=== PATIENT | female | born 1975 | race Caucasian/White ===

== ENCOUNTER 2018-04-28 12:53 | Emergency (ER) | payer BC ==
[~2018-04-28] VITALS: Ht 167.6 cm; Wt 61.0 kg
[~2018-04-28 12:53] MED LIST: FLEXERIL10 MG PO; LORTAB5 PO; NO MEDS; TORADOL PO
[2018-04-28] MEDS ORDERED: LEVOTHYROXIN50 MCG PO (13:03)
[2018-04-28] MEDS ORDERED: ESTRACE1 MG PO (13:04)
[2018-04-28 13:58] VITALS: BP 148/86
== END 2018-04-28 14:24 | disposition home or self-care (01) | DRG 556 ==
LOC: ED 12:53
DX: M25.532 Pain in left wrist (principal); M79.645 Pain in left finger(s); F17.210 Nicotine dependence, cigarettes, uncomplicated

== ENCOUNTER 2018-11-27 08:25 | Emergency (ER) | payer BC ==
[~2018-11-27] VITALS: Ht 167.6 cm; Wt 75.0 kg
[~2018-11-27 08:25] MED LIST changes: +ESTRACE1 MG PO; +LEVOTHYROXIN50 MCG PO
[2018-11-27] MEDS ORDERED: DICLOFENAC SODI75 MG PO (09:09)
[2018-11-27] MEDS ORDERED: EFFEXOR XR75 MG PO (09:09)
[2018-11-27] MEDS ORDERED: VITAMIN D PO (09:10)
[2018-11-27 09:14] LABS: HEMOGLOBIN 14.4 g/dl (12.0-16.0); IMMATURE GRANULOCYTES 0.6 % (0.0-5.0); MEAN CELL VOLUME 88.5 fL CALC (80.0-100.0); MEAN CORPUSCULAR HGB CONC 32.7 g/L CALC (32.0-36.0); NEUT# 5.92 thou/uL (2.00-7.15); RED BLOOD COUNT 4.97 mill/uL (4.20-5.60); RED CELL DISTRI WIDTH 13.6 % (11.5-15.5)
[2018-11-27 09:16] LABS: ANION GAP 18 (6-22 (CALC)); BUN 10 mg/dL (7-17); BUN/CREATININE RATIO 15 (12-20 (CALC)); CARBON DIOXIDE 21 mmol/l (22-30); CHLORIDE 105 mmol/l (95-108); CREATININE 0.7 mg/dL (0.5-1.0); GFR > 60 ML/MIN (>=60 (CALC)); GFR FOR AFR.AMER. > 60 ML/MIN (>=60 (CALC)); POTASSIUM 4.7 mmol/l (3.5-5.1); SODIUM 139 mmol/l (137-146)
[2018-11-27 09:25] VITALS: BP 160/93
== END 2018-11-27 09:25 | disposition short-term general hospital (02) | DRG 311 ==
LOC: ED 08:25
PROVIDERS: Family Medicine
DX: I20.0 Unstable angina (principal); F17.200 Nicotine dependence, unspecified, uncomplicated

== ENCOUNTER 2019-01-14 12:58 | Observation (INO) | payer BC ==
[~2019-01-14] VITALS: Ht 167.6 cm; Wt 75.0 kg
[~2019-01-14 12:58] MED LIST changes: +DICLOFENAC SODI75 MG PO; +EFFEXOR XR75 MG PO; +VITAMIN D PO
[2019-01-14 13:33] LABS: HEMATOCRIT 39.4 % (37.0-47.0); HEMOGLOBIN 13.1 g/dl (12.0-16.0); IMMATURE GRANULOCYTES 0.6 % (0.0-5.0); MEAN CELL VOLUME 87.2 fL CALC (80.0-100.0); MEAN CORPUSCULAR HGB CONC 33.2 g/L CALC (32.0-36.0); NEUT# 6.2 thou/uL (2.00-7.15); RED BLOOD COUNT 4.52 mill/uL (4.20-5.60); RED CELL DISTRI WIDTH 13.4 % (11.5-15.5)
[2019-01-14 13:45] LABS: ALBUMIN 4.8 g/dL (3.2-5.0); AMYLASE 126 u/l (30-110); BILIRUBIN, TOTAL 0.5 mg/dL (0.0-1.4); BUN 14 mg/dL (7-17); BUN/CREATININE RATIO 17 (12-20 (CALC)); CHLORIDE 100 mmol/l (95-108); CREATININE 0.8 mg/dL (0.5-1.0); GFR > 60 ML/MIN (>=60 (CALC)); GFR FOR AFR.AMER. > 60 ML/MIN (>=60 (CALC)); LIPASE 72 u/l (23-300); POTASSIUM 4.4 mmol/l (3.5-5.1); SGOT/AST 25 u/l (14-36); SODIUM 140 mmol/l (137-146); TOTAL PROTEIN 7.4 g/dL (6.3-8.2)
[2019-01-14 13:47] LABS: ALKALINE PHOSPHATASE 138 u/l (38-126); ANION GAP 18 (6-22 (CALC)); CARBON DIOXIDE 26 mmol/l (22-30)
[2019-01-14 13:53] LABS: MYOGLOBIN 39 ng/mL (0 - 62)
[2019-01-14] MEDS ORDERED: VITAMIN D32000 UNI3 (14:00)
[2019-01-14] MEDS ORDERED: METOPROL TAR25 MG PO (14:00)
[2019-01-14 14:01] LABS: INTERNATIONAL NORMALIZED RATIO 0.9 RATIO (0.7-1.3); PROTHROMBIN TIME 9.9 SECONDS (9.0-12.5)
[2019-01-14] MEDS ORDERED: ATORVASTATIN CA80 MG PO (14:01)
[2019-01-14] MEDS ORDERED: ASPIRIN81 MG PO (14:01)
[2019-01-14] MEDS ORDERED: BRILINTA90 MG PO (14:01)
[2019-01-14] MEDS ORDERED: ALENDRONATE70 MG PO (14:02)
[2019-01-14] MEDS ORDERED: TRAMADOL HCL50 MG PO (14:03)
[2019-01-14] MEDS ORDERED: OMEPRAZOLE10 MG PO (14:03)
[2019-01-14 15:05] LABS: URINE BILIRUBIN - DIPSTICK NEGATIVE (NEGATIVE); URINE BLOOD DIPSTICK NEGATIVE (NEGATIVE); URINE COLOR YELLOW; URINE GLUCOSE - DIPSTICK NEGATIVE (NEGATIVE); URINE KETONE NEGATIVE (NEGATIVE); URINE LEUK ESTERASE NEGATIVE (NEGATIVE); URINE NITRITE - DIPSTICK NEGATIVE (Negative); URINE PROTEIN - DIPSTICK NEGATIVE (NEG-TRACE); URINE UROBILINOGEN - DIPSTICK 0.2 E.U./dL (0.2)
[2019-01-15 00:19] VITALS: BP 102/65
[2019-01-15 04:32] VITALS: BP 93/62
[2019-01-15 06:21] LABS: HEMOGLOBIN 12.2 g/dl (12.0-16.0); IMMATURE GRANULOCYTES 0.5 % (0.0-5.0); MEAN CELL VOLUME 88.5 fL CALC (80.0-100.0); MEAN CORPUSCULAR HGB 29.2 pG CALC (26.0-32.0); NEUT# 4.5 thou/uL (2.00-7.15); RED BLOOD COUNT 4.18 mill/uL (4.20-5.60); RED CELL DISTRI WIDTH 13.4 % (11.5-15.5)
[2019-01-15 06:36] LABS: ALBUMIN 3.9 g/dL (3.2-5.0); ALKALINE PHOSPHATASE 122 u/l (38-126); ANION GAP 12 (6-22 (CALC)); BUN 14 mg/dL (7-17); BUN/CREATININE RATIO 19 (12-20 (CALC)); CARBON DIOXIDE 28 mmol/l (22-30); CHLORIDE 103 mmol/l (95-108); CREATININE 0.8 mg/dL (0.5-1.0); GFR > 60 ML/MIN (>=60 (CALC)); GFR FOR AFR.AMER. > 60 ML/MIN (>=60 (CALC)); MAGNESIUM 1.9 mg/dL (1.6-2.3); POTASSIUM 4.1 mmol/l (3.5-5.1); SGOT/AST 20 u/l (14-36); SODIUM 139 mmol/l (137-146); TOTAL PROTEIN 6.5 g/dL (6.3-8.2)
[2019-01-15 06:49] LABS: BILIRUBIN, TOTAL 0.2 mg/dL (0.0-1.4)
[2019-01-15 08:03] VITALS: BP 121/61
[2019-01-15 10:27] LABS: CHOLESTEROL HDL RATIO 2.6 (<4.4 (CALC))
[2019-01-15 10:59] VITALS: BP 103/58
== END 2019-01-15 13:00 | disposition home or self-care (01) | DRG 313 ==
LOC: ED 12:58 → ED-I 15:53 → ED 16:29 → MS2 16:30
PROVIDERS: Emergency Medicine; Nurse Practitioner Family; ADMIT Internal Medicine Nephrology; ATTEND Internal Medicine Nephrology
DX: R07.9 Chest pain, unspecified (principal); I10 Essential (primary) hypertension; E03.9 Hypothyroidism, unspecified; E78.5 Hyperlipidemia, unspecified; M19.90 Unspecified osteoarthritis, unspecified site; I25.2 Old myocardial infarction; Z87.891 Personal history of nicotine dependence; Z79.01 Long term (current) use of anticoagulants; Z95.5 Presence of coronary angioplasty implant and graft; Z90.710 Acquired absence of both cervix and uterus; Z90.79 Acquired absence of other genital organ(s)
CPT/HCPCS: G0378; J1650; J2060

== ENCOUNTER 2019-07-15 08:31 | Observation (INO) | payer BC ==
[~2019-07-15] VITALS: Ht 167.6 cm; Wt 84.4 kg
[~2019-07-15 08:31] MED LIST changes: +ALENDRONATE70 MG PO; +ASPIRIN81 MG PO; +ATORVASTATIN CA80 MG PO; +BRILINTA90 MG PO; -EFFEXOR XR75 MG PO; +EFFEXOR XR75 MG/CAP PO; +METOPROL TAR25 MG PO; +OMEPRAZOLE10 MG PO; +TRAMADOL HCL50 MG PO; +VITAMIN D32000 UNI3
--- NOTE | 2019-07-15 09:00 | NUR ---
PT ARRIVED IMMEDIATLY TO ROOM AFTER NOTIFICATION OF CHEST PAIN IN WAITING ROOM. PT IS IN NO DISTRESS AT THIS TIME. PT DOES NOT SHOW ANY SOB. PT LOOKS A BIT TIRED AND HAS BOTH HANDS ON KNEES IN STRETCHER. PT STATED HAVING CHEST PAIN SINCE YESTERDAY IN THE MORNING AND HAD RIGHT ARM NUMBNESS. EKG PREFORMED, IV INITIATED, NITRO AND ASPIRIN GIVIN. WILL CONTINUE TO MONITOR.
--- NOTE | 2019-07-15 09:00 | NUR ---
AFTER NITRO ADMINISTRATION THAT HAPPENED AT 0854, PT STATES THAT HER PAIN OF 7/10 HAS BEEN RELIEVED TO ABOUT A 1/10. WILL CONTINUE TO MONITOR.
[2019-07-15 09:32] LABS: HEMATOCRIT 39.8 % (37.0-47.0); HEMOGLOBIN 12.7 g/dl (12.0-16.0); IMMATURE GRANULOCYTES 0.6 % (0.0-5.0); MEAN CORPUSCULAR HGB 27.4 pG CALC (26.0-32.0); MEAN CORPUSCULAR HGB CONC 31.9 g/L CALC (32.0-36.0); NEUT# 5.41 thou/uL (2.00-7.15); RED BLOOD COUNT 4.63 mill/uL (4.20-5.60); RED CELL DISTRI WIDTH 13.5 % (11.5-15.5)
[2019-07-15 09:46] LABS: BARBITURATES NEGATIVE (NEGATIVE); COCAINE NEGATIVE (NEGATIVE); METHADONE NEGATIVE (NEGATIVE); OXCYCODONE NEGATIVE (NEGATIVE); TETRAHYDROCANNABIONOL NEGATIVE (NEGATIVE); TRICYLIC ANTIDEPRESSANTS POSITIVE (NEGATIVE)
[2019-07-15 09:47] LABS: ALKALINE PHOSPHATASE 133 u/l (38-126); ANION GAP 16 (6-22 (CALC)); BUN 13 mg/dL (7-17); BUN/CREATININE RATIO 16 (12-20 (CALC)); CARBON DIOXIDE 27 mmol/l (22-30); CHLORIDE 99 mmol/l (95-108); CREATININE 0.9 mg/dL (0.5-1.0); GFR > 60 ML/MIN (>=60 (CALC)); GFR FOR AFR.AMER. > 60 ML/MIN (>=60 (CALC)); LIPASE 78 u/l (23-300); POTASSIUM 3.8 mmol/l (3.5-5.1); SGOT/AST 27 u/l (14-36); SODIUM 138 mmol/l (137-146)
[2019-07-15 09:51] LABS: ALBUMIN 4.9 g/dL (3.2-5.0); BILIRUBIN, TOTAL 0.3 mg/dL (0.0-1.4); TOTAL PROTEIN 8.3 g/dL (6.3-8.2)
--- NOTE | 2019-07-15 10:00 | NUR ---
PT DENIES ANY NEEDS AT THIS TIME. SHE ASKED ABOUT PLAN OF CARE AND THAT WAS DISCUSSED. PT MADE COMFORTABLE. CALL LIGHT WITHIN REACH. ASKED A FEW QUESTIONS AND ASSISTANCE TO THEM WAS PROVIDED.
[2019-07-15] MEDS ORDERED: FUROSEMIDE20 MG PO (10:12)
[2019-07-15] MEDS ORDERED: CRESTOR5 MG PO (10:14)
[2019-07-15] MEDS ORDERED: [UNRECOGNIZED DRUG - OTHER] PO (10:18)
--- NOTE | 2019-07-15 11:18 | NUR ---
PT DENIES ANY NEEDS AT THIS TIME BESIDE HAVING A HEADACHE. PT IS SITTING UP IN STRETCHER WATCHING TV WITH CALL LIGHT IN HAND. PT ADVISED OF ADMISSION PROCESS AND WAIT TIME. WILL CONTINUE TO MONITIOR.
--- NOTE | 2019-07-15 11:39 | NUR ---
SPOKE TO ROCIO ROQUE SHE REQUESTED THAT WE ASK PT TO BRING IN [place]. PT NOTIFIED AND SHE WILL HAVE FAMILY BRING IT TO THE HOSPITAL.
--- NOTE | 2019-07-15 11:55 | NUR ---
PT TRANSPORTED UP TO [facility] SURG IN W/C IN NO DISTRESS AND IN STABLE CONDITION. CARE ASSUMED TO [place]
--- NOTE | 2019-07-15 11:55 | NUR ---
GERMAIN CAGLE TO [place]
--- NOTE | 2019-07-15 12:05 | NUR ---
PT ARRIVED FROM ER VIA WC WITH STAFF, IV SITE IS FREE FROM REDNESS OR EDEMA. TELE MONITOR IN PLACE.
[2019-07-15 12:09] VITALS: BP 156/91
--- NOTE | 2019-07-15 12:40 | NUR ---
ASSESSMENT IS COMPLETD: IV SITE IS FREE FROM REDNESS OR EDEMA. HR IS REG, PULSES ARE STRONG X4, ABD IS SOFT WITH ACTIVE BS. BREATH SOUNDS ARE CLEAR,BILATERALLY. NO C/O SOB, TELE MONITOR IN PLACE,
--- NOTE | 2019-07-15 16:00 | NUR ---
PT IS RELAXING IN BED WITH NO DISTRESS NOTED. IV SITE IS FREE FROM REDNESS OR EDEMA.
[2019-07-15 16:10] VITALS: BP 116/71
[2019-07-15 19:14] VITALS: BP 113/69
--- NOTE | 2019-07-15 19:51 | NUR ---
PT. RESTING IN BED WATCHING TV WITH NO DISTRESS NOTED; C/O IQBAL 01/10, MEDICATED WITH ORDERED TYLENOL; WILL REASSESS. ASSESSMENT COMPLETED; IV SITE PATENT AND SL, FLUSHED WITH NS. PO FLUIDS OFFERED. DENIES FURTHER NEEDS. CALL LIGHT IS IN REACH. WILL CONTINUE TO MONITOR.
--- NOTE | 2019-07-15 21:49 | NUR ---
SCHED MEDS GIVEN. FRESH WATER GIVEN. VOICES NO CONCERNS. CALL LIGHT IS IN REACH.
[2019-07-16 00:04] VITALS: BP 115/69
--- NOTE | 2019-07-16 01:15 | NUR ---
RESTING IN BED WITH EYES CLOSED; RESP. EVEN AND UNLABORED; NO DISTRESS NOTED. CALL LIGHT IS IN REACH.
[2019-07-16 03:40] VITALS: BP 105/69
--- NOTE | 2019-07-16 03:40 | NUR ---
VSS. NO DISTRESS NOTED; DENIES NEEDS/PAIN. ENCOURAGED TO CALL FOR ANY NEEDS. CALL LIGHT IS IN REACH.
[2019-07-16 07:19] VITALS: BP 119/76
--- NOTE | 2019-07-16 07:25 | NUR ---
PT RESTING IN BED. A&O X3. NO DISTRESS NOTED. WHEEZES HEARD UPON EXPIRATION. NO PAIN AT THIS TIME. PT STATES SHE STILL FEELS A LITTLE DIZZY STILL. EXPLAINED TO THE PT THAT SHE WAS TO CALL IF SHE HAD TO GET UP TO THE BSC TO PREVENT A FALL. DISCUSSED POC. ASSESSMENT COMPLETED AT THIS TIME. CALL LIGHT IN REACH. CONTINUE TO MONITOR.
--- NOTE | 2019-07-16 07:35 | NUR ---
PT RESTING IN BED. A&O X3. NO DISTRESS NOTED. NO NEEDS AT THIS TIME. DISCUSSED POC. ASSESSMENT COMPLETED AT THIS TIME. CALL LIGHT IN REACH CONTINUE TO MONITOR.
[2019-07-16 10:43] VITALS: BP 119/67
--- NOTE | 2019-07-16 12:02 | NUR ---
PT RESTING IN BED EATING LUNCH. NO DISTRESS NOTED. NO NEEDS AT THIS TIME. CALL LIGHT IN REACH. CONTINUE TO MONITOR.
[2019-07-16 15:25] VITALS: BP 112/63
[2019-07-16] MEDS ORDERED: NITROGLYCE0.4 MG/SPR SL (18:29)
--- NOTE | 2019-07-16 19:05 | NUR ---
Discharge instructions given. Patient verbalizes understanding of same. Discharged in stable condition via Ambulatory to Home with family. All belongings sent with pt.
== END 2019-07-16 19:05 | disposition home or self-care (01) | DRG 313 ==
LOC: ED 08:31 → ED-I 10:20 → ED 10:42 → MS2 10:43
PROVIDERS: ADMIT Internal Medicine; ATTEND Internal Medicine
DX: R07.2 Precordial pain (principal); I25.10 Atherosclerotic heart disease of native coronary artery without angina pectoris; I10 Essential (primary) hypertension; E78.5 Hyperlipidemia, unspecified; E03.9 Hypothyroidism, unspecified; F41.9 Anxiety disorder, unspecified; G62.9 Polyneuropathy, unspecified; M19.90 Unspecified osteoarthritis, unspecified site; I25.2 Old myocardial infarction; Z87.891 Personal history of nicotine dependence; Z95.5 Presence of coronary angioplasty implant and graft
CPT/HCPCS: G0378

== ENCOUNTER 2019-09-18 | Emergency (ER) | payer BC ==
[~2019-09-18] MED LIST changes: +CRESTOR5 MG PO; +FUROSEMIDE20 MG PO; +NITROGLYCE0.4 MG/SPR SL; +[UNRECOGNIZED DRUG - OTHER] PO
[2019-09-18] MEDS ORDERED: NORTRIPTYLINE H50 M1 PO (12:24)
[2019-09-18] MEDS ORDERED: K-TABS10 MEQ PO (12:25)
[2019-09-18] MEDS ORDERED: LORTAB 5/3255 MG PO (13:25)
== END 2019-09-18 13:30 | disposition home or self-care (01) | DRG 563 ==
DX: S46.911A Strain of unspecified muscle, fascia and tendon at shoulder and upper arm level, right arm, initial encounter (principal); I10 Essential (primary) hypertension; X50.9XXA Other and unspecified overexertion or strenuous movements or postures, initial encounter

== ENCOUNTER 2020-08-04 09:41 | Observation (INO) | payer BC ==
[~2020-08-04] VITALS: Ht 167.6 cm; Wt 84.5 kg
[~2020-08-04 09:41] MED LIST changes: +K-TABS10 MEQ PO; +LORTAB 5/3255 MG PO; +NORTRIPTYLINE H50 M1 PO
--- NOTE | 2020-08-04 09:48 | NUR ---
PATIENT TO ROOM VIA WHEELCHAIR FOR BEDSIDE TRIAGE.
--- NOTE | 2020-08-04 10:30 | NUR ---
PT PRESENTS WITH STERNAL CHEST PAIN OF 7/10. SHE MENTIONS THAT SHE FEELS NAUSEA, DIZZINESS AND "HEAVY CHEST". PT MENTIONS HAVING HX OF MS. LUNGS CLEAR. DENIES ANY OTHER S/S. DENIES RADIATION OF PAIN.
[2020-08-04 10:35] LABS: HEMATOCRIT 40.4 % (37.0-47.0); HEMOGLOBIN 12.6 g/dl (12.0-16.0); IMMATURE GRANULOCYTES 0.8 % (0.0-5.0); MEAN CELL VOLUME 85.1 fL CALC (80.0-100.0); MEAN CORPUSCULAR HGB 26.5 pG CALC (26.0-32.0); MEAN CORPUSCULAR HGB CONC 31.2 g/dL CAL (32.0-36.0); NEUT# 7.37 thou/uL (2.00-7.15); RED BLOOD COUNT 4.75 mill/uL (4.20-5.60); RED CELL DISTRI WIDTH 13.6 % (11.5-15.5)
[2020-08-04] MEDS ORDERED: PLAVIX75 MG PO (10:36)
[2020-08-04] MEDS ORDERED: VITAMIN D PO (10:39)
[2020-08-04] MEDS ORDERED: B121000 MC1 PO (10:41)
[2020-08-04] MEDS ORDERED: PROTONIX40 M2 PO (10:42)
[2020-08-04 10:55] LABS: ALBUMIN 4.5 g/dL (3.2-5.0); ALKALINE PHOSPHATASE 143 u/l (38-126); AMYLASE 104 u/l (30-110); BILIRUBIN, TOTAL 0.2 mg/dL (0.0-1.4); BUN 12 mg/dL (7-17); BUN/CREATININE RATIO 14 (12-20 (CALC)); CARBON DIOXIDE 27 mmol/l (22-30); CHLORIDE 101 mmol/l (95-108); CREATININE 0.9 mg/dL (0.5-1.0); GFR > 60 ML/MIN (>=60 (CALC)); GFR FOR AFR.AMER. > 60 ML/MIN (>=60 (CALC)); LIPASE 122 u/l (23-300); SGOT/AST 24 u/l (14-36); SODIUM 138 mmol/l (137-146); TOTAL PROTEIN 7.2 g/dL (6.3-8.2)
[2020-08-04 11:02] LABS: ANION GAP 15 (6-22 (CALC)); POTASSIUM 4.6 mmol/l (3.5-5.1)
[2020-08-04 11:03] LABS: MYOGLOBIN 37 ng/mL (0 - 62)
[2020-08-04 11:12] LABS: URINE BILIRUBIN - DIPSTICK NEGATIVE (NEGATIVE); URINE BLOOD DIPSTICK NEGATIVE (NEGATIVE); URINE COLOR YELLOW; URINE GLUCOSE - DIPSTICK NEGATIVE (NEGATIVE); URINE KETONE NEGATIVE (NEGATIVE); URINE LEUK ESTERASE NEGATIVE (NEGATIVE); URINE NITRITE - DIPSTICK NEGATIVE (Negative); URINE PH 5.5 (4.5-8.0); URINE PROTEIN - DIPSTICK NEGATIVE (NEG-TRACE); URINE SPECIFIC GRAVITY 1.025; URINE UROBILINOGEN - DIPSTICK 0.2 E.U./dL (0.2)
--- NOTE | 2020-08-04 11:30 | NUR ---
UPON REASSESSMENT OF THE PAIN SHE MENTIONS IT DID DECREASE A "BIT" WITH PROTONIX. DENIES ANY NAUSEA OR OTHER S/S AT THIS TIME. CALL LIGHT WITHIN REACH .
--- NOTE | 2020-08-04 12:59 | NUR ---
REPORT TO [facility] [employer]
--- NOTE | 2020-08-04 13:34 | NUR ---
PT TRANSPORTED TO MED SURG STABLE AND IN NO DISTRESS. CARE ASSUMED TO MED SURG NURSE. [facility] TRANSPORTED PT VIA W/C Admission Note Report Given to: Transported by: X Wheelchair Stretcher Transported with: X Nurse X Transporter X Patent IV O2 X Wash Rack Operator Location: ICU X [facility]
[2020-08-04 13:35] VITALS: BP 133/82
--- NOTE | 2020-08-04 13:35 | NUR ---
PT ARRIVED VIA WC WITH STAFF.
--- NOTE | 2020-08-04 14:00 | NUR ---
ASSESSMENT IS COMPLETED: IV SITE IS FREE FROM REDNESS OR EDEMA. HR IS REG,PULSES ARE STRONG X4, ABD IS SOFT WITH ACTIVE BS, BREATH SOUNDS ARE CLEAR,BILATERALLY. TELE MONITOR IN PLACE. CONTINUE TO OBSERVE AND MONITOR.
[2020-08-04 15:00] VITALS: BP 117/74
--- NOTE | 2020-08-04 16:55 | NUR ---
PT IS RELAXING IN BED WITH NO DISTRESS NOTED.
--- NOTE | 2020-08-04 18:12 | NUR ---
PT IS RELAXING IN BED WITH NO DISTRESS NOTED. IV SITE IS FREE FROM RENDESS OR EDEMA.
[2020-08-04 20:00] VITALS: BP 115/46
--- NOTE | 2020-08-04 20:26 | NUR ---
PT MEDICATED AND ASSESSMENT COMPLETED AT THIS TIME. NO S/O DISTRESS NOTED. PT REPORTS FEELING BETTER. WHEN ASKED SHE REPORTED MILD EPI-GASTRIC PAIN 2/10 ON PAIN SCALE. DENIES NUMBNESS OR TINGLING TO ARMS OR HANDS, DENIES PAIN IN CHEST. ENCOURAGED PT TO CALL NEEDS ARISE, CALL LIGHT NEXT TO HER HAND
[2020-08-05] VITALS: BP 106/67
--- NOTE | 2020-08-05 00:05 | NUR ---
PT SLEEPING, SLEEPING CAR CONDUCTOR OBTAINING V/S. DENIES ANY NEEDS AT THIS TIME.
--- NOTE | 2020-08-05 01:36 | NUR ---
PT IS SLEEPING, NO S/O DISTRESS NOTED.
[2020-08-05 04:00] VITALS: BP 126/76
--- NOTE | 2020-08-05 05:16 | NUR ---
PT WAS SLEEPING WHEN I ENTERED, BUT AWOKE TO MY VOICE. PT MEDICATED ORDERS PROVIDE. REPORTS FEELING BETTER. DENIES CHEST PAIN OR EPI-GASTRIC PAIN. CALL LIGHT AT SIDE AND PT ENCOURAGED TO CALL FOR ANY NEEDS.
[2020-08-05 08:10] VITALS: BP 110/64
--- NOTE | 2020-08-05 08:10 | NUR ---
ASSESSMENT IS COMPLETED: IV SITE IS FREE FROM REDNESS OR EDEMA. HR IS REG,PULSES ARE STRONG X4, ABD IS SOFT WITH ACTIVE BS. BREATH SOUNDS ARE CLEAR,BILATERALLY. TELE MONITOR IN PLACE.
[2020-08-05 10:30] VITALS: BP 122/78
--- NOTE | 2020-08-05 10:35 | NUR ---
DR STEWART IN TO VISIT WITH PT.,
--- NOTE | 2020-08-05 12:00 | NUR ---
PT IS RELXING IN BED WITH NO DISTRESS NOTED. IV SITE IS FREE FROM REDNESS OR EDEMA.
--- NOTE | 2020-08-05 13:10 | NUR ---
PT HAS AMBULATED OFF THE UNIT TO HER CAR. NO DISTRESS NOTED. IV SITE REMOVED AND CATHETER INTACT. NO REDNESS OR EDEMA. DISCHARGE INSTRUCTIONS GIVEN AND VERBALIZED UNDERSTANDING.
--- NOTE | 2020-08-05 13:30 | NUR ---
Discharge instructions given. Patient verbalizes understanding of same. Discharged in stable condition via Ambulatory to Home with *Other. All belongings sent with pt.
== END 2020-08-05 13:07 | disposition home or self-care (01) | DRG 313 ==
LOC: ED 09:41 → ED-I 11:52 → ED 12:02 → MS2 12:03
PROVIDERS: Emergency Medicine; ADMIT Internal Medicine; ATTEND Internal Medicine
DX: R07.9 Chest pain, unspecified (principal); K21.9 Gastro-esophageal reflux disease without esophagitis; I25.10 Atherosclerotic heart disease of native coronary artery without angina pectoris; I10 Essential (primary) hypertension; E03.9 Hypothyroidism, unspecified; E78.5 Hyperlipidemia, unspecified; I25.2 Old myocardial infarction; Z95.5 Presence of coronary angioplasty implant and graft; Z90.710 Acquired absence of both cervix and uterus; Z87.891 Personal history of nicotine dependence; Z20.822 Contact with and (suspected) exposure to COVID-19
CPT/HCPCS: G0378; J1650; S0164

== ENCOUNTER 2021-01-24 10:17 | Emergency (ER) | payer BC ==
[~2021-01-24] VITALS: Ht 167.6 cm; Wt 75.0 kg
[~2021-01-24 10:17] MED LIST changes: +B121000 MC1 PO; +PLAVIX75 MG PO; +PROTONIX40 M2 PO
[2021-01-24 11:10] LABS: HEMATOCRIT 39.2 % (37.0-47.0); HEMOGLOBIN 12.5 g/dl (12.0-16.0); IMMATURE GRANULOCYTES 0.6 % (0.0-5.0); MEAN CELL VOLUME 81.7 fL CALC (80.0-100.0); MEAN CORPUSCULAR HGB CONC 31.9 g/dL CAL (32.0-36.0); NEUT# 6.93 thou/uL (2.00-7.15); RED BLOOD COUNT 4.8 mill/uL (4.20-5.60); RED CELL DISTRI WIDTH 15.4 % (11.5-15.5)
[2021-01-24 11:41] LABS: ALBUMIN 4.2 g/dL (3.2-5.0); ALKALINE PHOSPHATASE 126 u/l (38-126); ANION GAP 14 (6-22 (CALC)); BILIRUBIN, TOTAL 0.2 mg/dL (0.0-1.4); BUN 12 mg/dL (7-17); BUN/CREATININE RATIO 15 (12-20 (CALC)); CARBON DIOXIDE 29 mmol/l (22-30); CHLORIDE 98 mmol/l (95-108); CREATININE 0.8 mg/dL (0.5-1.0); GFR > 60 ML/MIN (>=60 (CALC)); GFR FOR AFR.AMER. > 60 ML/MIN (>=60 (CALC)); SGOT/AST 27 u/l (14-36); SODIUM 137 mmol/l (137-146); TOTAL PROTEIN 7.1 g/dL (6.3-8.2)
[2021-01-24 12:01] VITALS: BP 148/68
== END 2021-01-24 12:02 | disposition home or self-care (01) | DRG 195 ==
LOC: ED 10:17
PROVIDERS: Emergency Medicine
DX: R09.1 Pleurisy (principal); I10 Essential (primary) hypertension; I25.2 Old myocardial infarction; Z95.5 Presence of coronary angioplasty implant and graft

== ENCOUNTER 2021-03-09 08:39 | Emergency (ER) | payer BC ==
[2021-03-09 10:14] LABS: HEMATOCRIT 38.6 % (37.0-47.0); HEMOGLOBIN 12.2 g/dl (12.0-16.0); IMMATURE GRANULOCYTES 0.1 % (0.0-5.0); MEAN CELL VOLUME 84.8 fL CALC (80.0-100.0); MEAN CORPUSCULAR HGB 26.8 pG CALC (26.0-32.0); MEAN CORPUSCULAR HGB CONC 31.6 g/dL CAL (32.0-36.0); NEUT# 4.31 thou/uL (2.00-7.15); RED BLOOD COUNT 4.55 mill/uL (4.20-5.60); RED CELL DISTRI WIDTH 15.5 % (11.5-15.5)
[2021-03-09 10:31] LABS: ALBUMIN 4.3 g/dL (3.2-5.0); ALKALINE PHOSPHATASE 120 u/l (38-126); ANION GAP 15 (6-22 (CALC)); BILIRUBIN, TOTAL 0.2 mg/dL (0.0-1.4); BUN 12 mg/dL (7-17); BUN/CREATININE RATIO 17 (12-20 (CALC)); CARBON DIOXIDE 26 mmol/l (22-30); CHLORIDE 100 mmol/l (95-108); CREATININE 0.7 mg/dL (0.5-1.0); GFR > 60 ML/MIN (>=60 (CALC)); GFR FOR AFR.AMER. > 60 ML/MIN (>=60 (CALC)); POTASSIUM 3.8 mmol/l (3.5-5.1); SGOT/AST 37 u/l (14-36); SODIUM 137 mmol/l (137-146); TOTAL PROTEIN 7.2 g/dL (6.3-8.2)
[2021-03-09] MEDS ORDERED: ZOFRAN4 M1 PO (13:32)
[2021-03-09 14:01] VITALS: BP 140/68
== END 2021-03-09 14:08 | disposition home or self-care (01) | DRG 948 ==
LOC: ED 08:39
PROVIDERS: Family Medicine
DX: R53.83 Other fatigue (principal); E11.9 Type 2 diabetes mellitus without complications; I10 Essential (primary) hypertension; I25.2 Old myocardial infarction; Z95.5 Presence of coronary angioplasty implant and graft; Z20.822 Contact with and (suspected) exposure to COVID-19

== ENCOUNTER 2021-03-19 12:19 | Emergency (ER) | payer BC ==
[~2021-03-19] VITALS: Ht 167.6 cm; Wt 80.0 kg
[~2021-03-19 12:19] MED LIST changes: +ZOFRAN4 M1 PO
[2021-03-19 14:16] LABS: URINE BLOOD DIPSTICK TRACE-INTACT (NEGATIVE); URINE COLOR YELLOW; URINE GLUCOSE - DIPSTICK NEGATIVE (NEGATIVE); URINE KETONE 40 mg/dL (NEGATIVE); URINE LEUK ESTERASE NEGATIVE (NEGATIVE); URINE PROTEIN - DIPSTICK 100 mg/dL (NEG-TRACE); URINE SPECIFIC GRAVITY >=1.030; URINE UROBILINOGEN - DIPSTICK 0.2 E.U./dL (0.2)
[2021-03-19 14:19] LABS: IMMATURE GRANULOCYTES 0.9 % (0.0-5.0); MEAN CELL VOLUME 81.7 fL CALC (80.0-100.0); MEAN CORPUSCULAR HGB 26.5 pG CALC (26.0-32.0); MEAN CORPUSCULAR HGB CONC 32.5 g/dL CAL (32.0-36.0); NEUT# 5.16 thou/uL (2.00-7.15); RED BLOOD COUNT 5.58 mill/uL (4.20-5.60); RED CELL DISTRI WIDTH 15.4 % (11.5-15.5)
[2021-03-19 14:24] LABS: URINE BILIRUBIN - DIPSTICK MODERATE (NEGATIVE)
[2021-03-19 14:24] LABS: HEMATOCRIT 45.6 % (37.0-47.0); HEMOGLOBIN 14.8 g/dl (12.0-16.0)
[2021-03-19 14:25] LABS: URINE NITRITE - DIPSTICK NEGATIVE (Negative)
[2021-03-19 14:26] LABS: URINE SQUAMOUS EPITHELIAL CELL MODERATE EPI/hpf (0-FEW)
[2021-03-19 14:38] LABS: ALBUMIN 4.4 g/dL (3.2-5.0); ALKALINE PHOSPHATASE 139 u/l (38-126); ANION GAP 18 (6-22 (CALC)); BUN 9 mg/dL (7-17); BUN/CREATININE RATIO 11 (12-20 (CALC)); CARBON DIOXIDE 25 mmol/l (22-30); CHLORIDE 98 mmol/l (95-108); CREATININE 0.9 mg/dL (0.5-1.0); GFR > 60 ML/MIN (>=60 (CALC)); GFR FOR AFR.AMER. > 60 ML/MIN (>=60 (CALC)); POTASSIUM 3.4 mmol/l (3.5-5.1); SGOT/AST 38 u/l (14-36); SODIUM 137 mmol/l (137-146); TOTAL PROTEIN 7.9 g/dL (6.3-8.2)
[2021-03-19 14:41] LABS: BILIRUBIN, TOTAL 0.3 mg/dL (0.0-1.4)
[2021-03-19] MEDS ORDERED: ROBITUSSIN AC10 ML PO (14:50)
[2021-03-19] MEDS ORDERED: ZITHROMAX250 MG PO (14:50)
[2021-03-19 16:34] VITALS: BP 140/75
[2021-03-19] MEDS ORDERED: ONDANSETRON4 MG PO (16:37)
== END 2021-03-19 17:10 | disposition home or self-care (01) | DRG 179 ==
LOC: ED 12:19
PROVIDERS: Emergency Medicine
DX: U07.1 COVID-19 (principal); I10 Essential (primary) hypertension

== ENCOUNTER 2021-07-07 10:12 | Observation (INO) | payer BC ==
[~2021-07-07] VITALS: Ht 167.6 cm; Wt 81.8 kg
[~2021-07-07 10:12] MED LIST changes: +ONDANSETRON4 MG PO; +ROBITUSSIN AC10 ML PO; +ZITHROMAX250 MG PO
[2021-07-07 10:52] LABS: IMMATURE GRANULOCYTES 0.2 % (0.0-5.0); MEAN CELL VOLUME 83.3 fL CALC (80.0-100.0); MEAN CORPUSCULAR HGB 26.4 pG CALC (26.0-32.0); MEAN CORPUSCULAR HGB CONC 31.7 g/dL CAL (32.0-36.0); NEUT# 6.75 thou/uL (2.00-7.15); RED BLOOD COUNT 4.73 mill/uL (4.20-5.60); RED CELL DISTRI WIDTH 14.1 % (11.5-15.5)
[2021-07-07 10:53] LABS: HEMATOCRIT 39.4 % (37.0-47.0); HEMOGLOBIN 12.5 g/dl (12.0-16.0)
[2021-07-07 11:13] LABS: ALBUMIN 4.3 g/dL (3.2-5.0); ALKALINE PHOSPHATASE 131 u/l (38-126); BILIRUBIN, TOTAL 0.4 mg/dL (0.0-1.4); BUN 9 mg/dL (7-17); BUN/CREATININE RATIO 14 (12-20 (CALC)); CARBON DIOXIDE 26 mmol/l (22-30); CHLORIDE 100 mmol/l (95-108); CREATININE 0.7 mg/dL (0.5-1.0); GFR > 60 ML/MIN (>=60 (CALC)); GFR FOR AFR.AMER. > 60 ML/MIN (>=60 (CALC)); SGOT/AST 27 u/l (14-36); SODIUM 137 mmol/l (137-146); TOTAL PROTEIN 7.2 g/dL (6.3-8.2)
[2021-07-07 11:14] LABS: ANION GAP 15 (6-22 (CALC)); POTASSIUM 4.1 mmol/l (3.5-5.1)
[2021-07-07] MEDS ORDERED: LOSARTAN POTASS25 MG PO (12:10)
[2021-07-07] MEDS ORDERED: FUROSEMIDE20 MG PO (12:11)
[2021-07-07] MEDS ORDERED: POTASSIUM CHLO10 MEQ PO (12:12)
[2021-07-07 14:30] VITALS: BP 130/78
== END 2021-07-07 14:30 | disposition left against medical advice (07) | DRG 313 ==
LOC: ED 10:12 → ED-I 12:23 → ED 12:41 → MS2 12:42
PROVIDERS: Family Medicine; ADMIT Hospitalist; ATTEND Hospitalist
DX: R07.9 Chest pain, unspecified (principal); I10 Essential (primary) hypertension; I25.10 Atherosclerotic heart disease of native coronary artery without angina pectoris; R73.03 Prediabetes; E66.9 Obesity, unspecified; I25.2 Old myocardial infarction; Z95.5 Presence of coronary angioplasty implant and graft; Z20.822 Contact with and (suspected) exposure to COVID-19

== ENCOUNTER 2022-12-03 14:13 | Emergency (ER) | payer SELFPAY ==
[2022-12-03] VITALS (13 sets, daily range): BP systolic 110–157; BP diastolic 73–88
[~2022-12-03] VITALS: Ht 167.6 cm; Wt 66.3 kg
[~2022-12-03 14:13] MED LIST changes: +LOSARTAN POTASS25 MG PO; +POTASSIUM CHLO10 MEQ PO
[2022-12-03 15:21] LABS: BASO% 0.4 % (0-3); HEMATOCRIT 40.7 % (37.0-47.0); HEMOGLOBIN 12.9 g/dl (12.0-16.0); IMMATURE GRANULOCYTES 0.3 % (0.0-5.0); LYMPH% 27.5 % (15-41); MEAN CELL VOLUME 83.2 fL CALC (80.0-100.0); MEAN CORPUSCULAR HGB 26.4 pG CALC (26.0-32.0); MEAN CORPUSCULAR HGB CONC 31.7 g/dL CAL (32.0-36.0); MONO% 4.9 % (2-13); NEUT# 4.49 thou/uL (2.00-7.15); NEUT% 66.9 % (42-76); RED BLOOD COUNT 4.89 mill/uL (4.20-5.60); RED CELL DISTRI WIDTH 14.2 % (11.5-15.5)
[2022-12-03 15:41] LABS: ALBUMIN 4.6 g/dL (3.2-5.0); ALKALINE PHOSPHATASE 114 u/l (38-126); ANION GAP 15 (6-22 (CALC)); BILIRUBIN, TOTAL 0.2 mg/dL (0.02-1.3); BUN 8 mg/dL (7-17); BUN/CREATININE RATIO 9 (12-20 (CALC)); CARBON DIOXIDE 27 mmol/l (22-30); CHLORIDE 103 mmol/l (95-108); CREATININE 0.9 mg/dL (0.5-1.0); GFR FOR AFR.AMER. > 60 ML/MIN (>=60 (CALC)); GFR OTHER RACES > 60 ML/MIN (>=60 (CALC)); POTASSIUM 4.4 mmol/l (3.5-5.1); SGOT/AST 27 u/l (14-36); SODIUM 141 mmol/l (137-146); TOTAL PROTEIN 7.2 g/dL (6.3-8.2)
[2022-12-03 15:55] LABS: D-DIMER 0.24 mg/L (0.19-0.60)
[2022-12-03 16:02] LABS: INTERNATIONAL NORMALIZED RATIO 1.1 RATIO (0.7-1.3); PROTHROMBIN TIME 10.5 SECONDS (9.0-12.5)
== END 2022-12-03 17:51 | disposition left against medical advice (07) | DRG 313 ==
LOC: ED 14:13 → ED-I 16:00 → ED 17:51
PROVIDERS: Nurse Practitioner
DX: R07.9 Chest pain, unspecified (principal); Z53.29 Procedure and treatment not carried out because of patient's decision for other reasons; I10 Essential (primary) hypertension; R51.9 Headache, unspecified